=== PATIENT | female | born 1980 | race Caucasian/White ===

== ENCOUNTER 2018-09-05 23:36 | Emergency (ER) | payer OTHER | END 2018-09-06 04:10 | disposition home or self-care (01) | LOC: JER 23:36 | DX: R42 Dizziness and giddiness (principal); R00.2 Palpitations; Z52.4 Kidney donor ==

== ENCOUNTER 2020-02-02 11:34 | Inpatient (IN) | payer OTHER ==
[2020-02-02 13:57] LABS: BASO % 0.4 % (0-2.0); HEMATOCRIT 22.2 % (32.4-45.2); LYMPH % 39.3 % (8-40); MCH 21.9 pg (25.7-33.7); MCHC 31.4 g/dl (32.0-36.0); MEAN CELL VOLUME 69.7 fl (80-96); MEAN PLT VOLUME 8.6 fl (7.5-11.1); MONO % 8.7 % (3.8-10.2); NEUT % 48.6 % (42.8-82.8); PLATELET COUNT 296 K/MM3 (134-434); RBC 3.18 M/mm3 (3.60-5.2); WHITE BLOOD COUNT 6.3 K/mm3 (4.0-10.0)
[2020-02-02 14:07] LABS: CHLORIDE 109 mmol/L (98-107); INR 1.02 (0.83-1.09); PROTHROMBIN TIME (PATIENT) 12.5 SEC (9.7-13.0); SODIUM 139 mmol/L (136-145)
[2020-02-02 14:09] LABS: ALBUMIN 3.8 g/dl (3.4-5.0); ANION GAP 4 MMOL/L (8-16); CALCIUM 8.6 mg/dL (8.5-10.1); CO2 26 mmol/L (21-32); GLUCOSE,RANDOM 89 mg/dL (74-106)
[2020-02-02 14:10] LABS: ACTIVATED PTT 30.1 SECONDS (25.2-36.5)
[2020-02-02 14:13] LABS: CREATININE 0.9 mg/dL (0.55-1.3); SGOT/AST 38 U/L (15-37); SGPT/ALT 49 U/L (13-61)
[2020-02-02 14:14] LABS: BILIRUBIN,TOTAL 0.4 mg/dL (0.2-1)
[2020-02-02 14:15] LABS: ALK PHOS 70 U/L (45-117); TOT PROT 7.4 g/dl (6.4-8.2)
[2020-02-02 14:50] LABS: ANISOCYTOSIS 2+; MACROCYTOSIS 1+; PLATELET ESTIMATE NORMAL
[2020-02-02 17:53] LABS: RETICULOCYTES 2.02 % (0.5-1.5)
[2020-02-02 18:05] LABS: IRON SERUM 20 ug/dL (50-175); TOTAL IRON BINDING CAPACITY 410 ug/dL (250-450)
[2020-02-02 18:21] VITALS: BMI 32.7
[2020-02-03 07:16] VITALS: BP 122/66; PULSE 76; TEMP 98.5
[2020-02-03 08:22] LABS: INR 1.09 (0.83-1.09); PROTHROMBIN TIME (PATIENT) 13.1 SEC (9.7-13.0)
[2020-02-03 08:25] LABS: ACTIVATED PTT 30.5 SECONDS (25.2-36.5)
[2020-02-03 08:29] LABS: BASO % 0.8 % (0-2.0); EOS % 3.2 % (0-4.5); HEMATOCRIT 27.4 % (32.4-45.2); HEMOGLOBIN 8.9 GM/dL (10.7-15.3); LYMPH % 33.3 % (8-40); MCH 23.1 pg (25.7-33.7); MCHC 32.4 g/dl (32.0-36.0); MEAN CELL VOLUME 71.4 fl (80-96); MEAN PLT VOLUME 8.9 fl (7.5-11.1); MONO % 7.2 % (3.8-10.2); NEUT % 55.5 % (42.8-82.8); PLATELET COUNT 289 K/MM3 (134-434); RBC 3.84 M/mm3 (3.60-5.2); WHITE BLOOD COUNT 6.6 K/mm3 (4.0-10.0)
[2020-02-03 08:37] LABS: POTASSIUM 3.8 mmol/L (3.5-5.1)
[2020-02-03 08:42] LABS: CALCIUM 8.2 mg/dL (8.5-10.1); MAGNESIUM 2.1 mg/dL (1.8-2.4)
[2020-02-03 08:43] LABS: ALBUMIN 3.6 g/dl (3.4-5.0); BLOOD UREA NITROGEN 11.9 mg/dL (7-18)
[2020-02-03 08:45] LABS: CREATININE 0.9 mg/dL (0.55-1.3); PHOSPHOROUS 3.1 mg/dL (2.5-4.9)
[2020-02-03 08:47] LABS: BILIRUBIN,TOTAL 1.2 mg/dL (0.2-1); TOT PROT 6.9 g/dl (6.4-8.2)
[2020-02-03] MEDS ORDERED: IRON SUCROSE INJECTION 200 MG in SODIUM CHLORIDE 90 ML IVPB ONE (09:00)
[2020-02-03 09:02] LABS: CHOLESTEROL 171 mg/dL (50-200)
[2020-02-03 09:03] LABS: LDL CHOLESTEROL (ONLY SJRH) 119 mg/dL (5-100); TRIGLYCERIDES 128 mg/dL (0-150)
[2020-02-03 09:05] LABS: HDL CHOLESTEROL 45 mg/dL (40-60)
[2020-02-03] MEDS ORDERED: PT OWN MED DRAWER 7, Y5N ONE (09:58)
== END 2020-02-03 13:43 | disposition home or self-care (01) | DRG 663 ==
LOC: JER 11:34 → JERBED 14:54 → J8W 17:47
PROVIDERS: ATTEND Student in an Organized Health Care Education/Training Program
PROC: 30233N1 Transfusion of Nonautologous Red Blood Cells into Peripheral Vein, Percutaneous Approach (ICD-10-PCS; principal; 2020-02-02)
DX: D50.9 Iron deficiency anemia, unspecified (principal); N92.0 Excessive and frequent menstruation with regular cycle; I10 Essential (primary) hypertension; N93.8 Other specified abnormal uterine and vaginal bleeding; R93.89 Abnormal findings on diagnostic imaging of other specified body structures; E66.9 Obesity, unspecified; Z68.32 Body mass index [BMI] 32.0-32.9, adult
CPT/HCPCS: 36415; 36430; 80053; 80061; 82550; 82728; 83036; 83540; 83550; 83721; 83735; 84100; 84484; 85025; 85045; 85610; 85730; 86850; 86900; 86901; 86922; 93005; 93010; 99285-25; C9803; J1756; P9058; U0003

== ENCOUNTER 2020-10-26 11:06 | Inpatient (IN) | payer OTHER ==
[2020-10-26 13:22] LABS: BASO % 0.4 % (0-2.0); EOS % 2.6 % (0-4.5); HEMATOCRIT 22.5 % (32.4-45.2); HEMOGLOBIN 7.1 GM/dL (10.7-15.3); MCH 20.1 pg (25.7-33.7); MCHC 31.7 g/dl (32.0-36.0); MEAN CELL VOLUME 63.6 fl (80-96); MEAN PLT VOLUME 7.9 fl (7.5-11.1); MONO % 6.8 % (3.8-10.2); NEUT % 44.2 % (42.8-82.8); PLATELET COUNT 295 10^3/uL (134-434); RBC 3.53 M/mm3 (3.60-5.2); RDW 17.6 % (11.6-15.6)
[2020-10-26 13:42] LABS: ALBUMIN 3.8 g/dl (3.4-5.0); BLOOD UREA NITROGEN 14.4 mg/dL (7-18); CALCIUM 8.2 mg/dL (8.5-10.1)
[2020-10-26 13:46] LABS: CREATININE 0.9 mg/dL (0.55-1.3)
[2020-10-26 13:47] LABS: BILIRUBIN,TOTAL 0.7 mg/dL (0.2-1); TOT PROT 7.5 g/dl (6.4-8.2)
[2020-10-26 14:07] LABS: ANISOCYTOSIS 1+; MACROCYTOSIS 0; PLATELET ESTIMATE NORMAL
[2020-10-26 18:09] VITALS: BMI 25.9
[2020-10-26] MEDS ORDERED: amLODIPine BESYLATE 5 MG TABLET (FP) PO SCH (19:00)
[2020-10-26] MEDS ORDERED: LISINOPRIL 10 MG TABLET PO SCH (22:00)
[2020-10-27 03:38] LABS: BASO % 0.3 % (0-2.0); EOS % 2.8 % (0-4.5); HEMATOCRIT 29.3 % (32.4-45.2); HEMOGLOBIN 9.8 GM/dL (10.7-15.3); LYMPH % 44.9 % (8-40); MCH 22.8 pg (25.7-33.7); MCHC 33.5 g/dl (32.0-36.0); MEAN CELL VOLUME 68.1 fl (80-96); MEAN PLT VOLUME 7.3 fl (7.5-11.1); MONO % 7.8 % (3.8-10.2); NEUT % 44.2 % (42.8-82.8); PLATELET COUNT 261 10^3/uL (134-434); RDW 23.4 % (11.6-15.6); WHITE BLOOD COUNT 5.5 K/mm3 (4.0-10.0)
[2020-10-27 04:00] LABS: BLOOD UREA NITROGEN 13.4 mg/dL (7-18); MAGNESIUM 1.8 mg/dL (1.8-2.4)
[2020-10-27 04:05] LABS: CREATININE 0.8 mg/dL (0.55-1.3)
[2020-10-27] MEDS ORDERED: HYDROCHLOROTHIAZIDE 12.5 MG CAPSULE (FP) PO SCH (10:00)
[2020-10-27 15:43] LABS: EPI CELLS 31 /uL (0-25.1); HYALINE CASTS 2 /uL (0-3.1); PH,URINE 6.5 (5.0-8.0); URINE APPEARANCE CLOUDY; URINE BACTERIA 1912 /uL (0-1359); URINE BILIRUBIN NEGATIVE (NEGATIVE); URINE COLOR ORANGE; URINE GLUCOSE (UA) NEGATIVE (NEGATIVE); URINE KETONE NEGATIVE (NEGATIVE); URINE LEUK ESTERASE NEGATIVE (NEGATIVE); URINE NITRITE NEGATIVE (NEGATIVE); URINE PROTEIN 1+ (NEGATIVE); URINE RBC 79 /uL (0-23.9); URINE UROBILINOGEN 0.2 mg/dL (0.2-1.0)
[2020-10-27 19:04] LABS: URINE WBC 119.8 /uL (0-25.8)
[2020-10-28] MEDS ORDERED: IRON SUCROSE INJECTION 200 MG in SODIUM CHLORIDE 90 ML IVPB ONE (04:12)
[2020-10-28 09:40] VITALS: TEMP 98.6
[2020-10-28] MEDS ORDERED: amLODIPine BESYLATE 5 MG TABLET (FP) PO SCH (10:00)
[2020-10-28 10:36] LABS: BASO % 0.4 % (0-2.0); EOS % 2.8 % (0-4.5); HEMATOCRIT 31.9 % (32.4-45.2); HEMOGLOBIN 10.4 GM/dL (10.7-15.3); LYMPH % 33.5 % (8-40); MCH 22.8 pg (25.7-33.7); MCHC 32.7 g/dl (32.0-36.0); MEAN CELL VOLUME 69.7 fl (80-96); MEAN PLT VOLUME 8.2 fl (7.5-11.1); MONO % 5.3 % (3.8-10.2); PLATELET COUNT 295 10^3/uL (134-434); RBC 4.58 M/mm3 (3.60-5.2); WHITE BLOOD COUNT 5.5 K/mm3 (4.0-10.0)
[2020-10-28 14:39] VITALS: BP 124/72; PULSE 62
== END 2020-10-28 18:31 | disposition home or self-care (01) | DRG 663 ==
LOC: JER 11:06 → JERBED 14:22 → J6S 17:19 → OBSVTOIN 21:01
PROVIDERS: ADMIT Internal Medicine; ATTEND Internal Medicine
PROC: 30233N1 Transfusion of Nonautologous Red Blood Cells into Peripheral Vein, Percutaneous Approach (ICD-10-PCS; principal; 2020-10-26)
DX: D62 Acute posthemorrhagic anemia (principal); I10 Essential (primary) hypertension; N92.1 Excessive and frequent menstruation with irregular cycle; Z52.4 Kidney donor; D50.0 Iron deficiency anemia secondary to blood loss (chronic); N83.202 Unspecified ovarian cyst, left side; N83.201 Unspecified ovarian cyst, right side
CPT/HCPCS: 36415; 36430; 36511; 76830-TC; 80048; 80053; 81003; 82728; 83540; 83550; 83735; 85025; 86850; 86900; 86901; 86922; 93005; 93010; 99285-25; C9803; G0378; J1756; P9038; P9058; U0003; U0005

== ENCOUNTER 2022-02-17 11:15 | Emergency (ER) | payer OTHER ==
[2022-02-17 11:57] VITALS: BP 163/76; PULSE 84; RESP 20; TEMP 99.5; BMI 29.2
[2022-02-17] MEDS ORDERED: IBUPROFEN 600 MG TABLET (FP) PO ONE ×2 (12:14→12:33)
[2022-02-17 13:03] LABS: BASO % 0.4 % (0-2.0); EOS % 1.4 % (0-4.5); HEMATOCRIT 29.5 % (32.4-45.2); HEMOGLOBIN 9.5 GM/dL (10.7-15.3); MCH 24.2 pg (25.7-33.7); MCHC 32.3 g/dl (32.0-36.0); MEAN CELL VOLUME 74.9 fl (80-96); MEAN PLT VOLUME 8.1 fl (7.5-11.1); MONO % 4.5 % (3.8-10.2); NEUT % 65.7 % (42.8-82.8); PLATELET COUNT 346 10^3/uL (134-434); RBC 3.94 M/mm3 (3.60-5.2); RDW 19.5 % (11.6-15.6); WHITE BLOOD COUNT 5.9 K/mm3 (4.0-10.0)
[2022-02-17 13:11] LABS: INR 1.03 (0.83-1.09); PROTHROMBIN TIME (PATIENT) 11.8 SEC (9.7-13.0)
[2022-02-17 13:14] LABS: ACTIVATED PTT 31.5 SECONDS (25.2-36.5)
[2022-02-17 13:30] LABS: EPI CELLS 18 /uL (0-25.1); HYALINE CASTS 8 /uL (0-3.1); URINE APPEARANCE TURBID; URINE BILIRUBIN 1+ (NEGATIVE); URINE COLOR RED; URINE GLUCOSE (UA) NEGATIVE (NEGATIVE); URINE KETONE NEGATIVE (NEGATIVE); URINE LEUK ESTERASE 1+ (NEGATIVE); URINE NITRITE POSITIVE (NEGATIVE); URINE PROTEIN 4+ (NEGATIVE); URINE RBC 3454 /uL (0-23.9); URINE UROBILINOGEN 0.2 mg/dL (0.2-1.0); URINE WBC 8 /uL (0-25.8)
[2022-02-17 13:33] LABS: URINE BACTERIA 228 /uL (0-1359)
[2022-02-17 13:43] LABS: ALBUMIN 3.7 g/dl (3.4-5.0)
[2022-02-17 13:44] LABS: BLOOD UREA NITROGEN 11.2 mg/dL (7-18)
[2022-02-17 13:47] LABS: CREATININE 0.9 mg/dL (0.55-1.3)
[2022-02-17 13:48] LABS: BILIRUBIN,TOTAL 0.5 mg/dL (0.2-1); TOT PROT 7.5 g/dl (6.4-8.2)
== END 2022-02-17 14:12 | disposition home or self-care (01) ==
LOC: JER 11:15 → JERFT 11:15
DX: N93.9 Abnormal uterine and vaginal bleeding, unspecified (principal)
CPT/HCPCS: 0241U-QW; 36415; 80053; 81003; 84703; 85025; 85610; 85730; 86850; 86900; 86901; 87086; 99283-25

== ENCOUNTER 2022-06-21 19:27 | Observation (INO) | payer OTHER ==
[2022-06-21 19:41] VITALS: BMI 29.2
[2022-06-21] MEDS ORDERED: METOCLOPRAMIDE HCL INJECTION 10 MG/2 ML VIAL IVPB ONE (20:08)
[2022-06-21] MEDS ORDERED: METOCLOPRAMIDE HCL INJECTION 10 MG/2 ML VIAL ONE (20:11)
[2022-06-21 21:15] LABS: BASO % 0.3 % (0-2.0); HEMATOCRIT 19.9 % (32.4-45.2); LYMPH % 17.8 % (8-40); MCH 21.1 pg (25.7-33.7); MCHC 32.1 g/dl (32.0-36.0); MEAN CELL VOLUME 65.8 fl (80-96); MEAN PLT VOLUME 7.7 fl (7.5-11.1); MONO % 4.3 % (3.8-10.2); NEUT % 76.6 % (42.8-82.8); PLATELET COUNT 272 10^3/uL (134-434); RBC 3.02 M/mm3 (3.60-5.2)
[2022-06-21 21:36] LABS: INR 1.05 (0.83-1.09); PROTHROMBIN TIME (PATIENT) 12.2 SEC (9.7-13.0)
[2022-06-21 21:38] LABS: ACTIVATED PTT 22.2 SECONDS (25.2-36.5)
[2022-06-21 21:45] LABS: HEMOGLOBIN 6.4 GM/dL (10.7-15.3)
[2022-06-21 21:52] LABS: ALBUMIN 3.1 g/dl (3.4-5.0); BLOOD UREA NITROGEN 10.3 mg/dL (7-18); CALCIUM 8.3 mg/dL (8.5-10.1)
[2022-06-21 21:57] LABS: BILIRUBIN,TOTAL 0.3 mg/dL (0.2-1); TOT PROT 6.6 g/dl (6.4-8.2)
[2022-06-21 22:32] LABS: ANISOCYTOSIS 3+; MACROCYTOSIS 0; OVALOCYTE 1+; TARGET CELLS 1+
[2022-06-22] MEDS ORDERED: IRON SUCROSE INJECTION 100 MG in SODIUM CHLORIDE 95 ML IVPB ONE (10:54)
[2022-06-22] MEDS ORDERED: FERROUS SO4 325 MG TABLET (FP) ONE (11:09)
[2022-06-22] MEDS ORDERED: amLODIPine BESYLATE 5 MG TABLET (FP) ONE (11:09)
[2022-06-22] MEDS: amLODIPine BESYLATE 5 MG TABLET (FP) PO SCH (11:28)
[2022-06-22] MEDS: FERROUS SO4 325 MG TABLET (FP) PO SCH (11:28)
[2022-06-22 13:45] LABS: BASO % 0.4 % (0-2.0); EOS % 1.2 % (0-4.5); HEMATOCRIT 27.2 % (32.4-45.2); HEMOGLOBIN 9.1 GM/dL (10.7-15.3); LYMPH % 30.2 % (8-40); MCH 23.3 pg (25.7-33.7); MCHC 33.3 g/dl (32.0-36.0); MEAN CELL VOLUME 69.9 fl (80-96); MEAN PLT VOLUME 7.9 fl (7.5-11.1); MONO % 4.2 % (3.8-10.2); PLATELET COUNT 259 10^3/uL (134-434); RBC 3.89 M/mm3 (3.60-5.2); RDW 21.9 % (11.6-15.6); WHITE BLOOD COUNT 6.7 K/mm3 (4.0-10.0)
[2022-06-23 07:18] LABS: BASO % 0.5 % (0-2.0); EOS % 2.5 % (0-4.5); HEMATOCRIT 25.7 % (32.4-45.2); HEMOGLOBIN 8.8 GM/dL (10.7-15.3); MCHC 34.3 g/dl (32.0-36.0); MEAN PLT VOLUME 8.5 fl (7.5-11.1); MONO % 5.9 % (3.8-10.2); NEUT % 51.1 % (42.8-82.8); PLATELET COUNT 234 10^3/uL (134-434); RBC 3.67 M/mm3 (3.60-5.2); WHITE BLOOD COUNT 6.4 K/mm3 (4.0-10.0)
[2022-06-23 07:49] LABS: CALCIUM 8.1 mg/dL (8.5-10.1)
[2022-06-23 07:50] LABS: ALBUMIN 2.9 g/dl (3.4-5.0); BLOOD UREA NITROGEN 10.1 mg/dL (7-18); MAGNESIUM 1.9 mg/dL (1.8-2.4)
[2022-06-23 07:52] LABS: PHOSPHOROUS 2.8 mg/dL (2.5-4.9)
[2022-06-23 07:53] LABS: CREATININE 0.7 mg/dL (0.55-1.3)
[2022-06-23 07:54] LABS: BILIRUBIN,TOTAL 0.6 mg/dL (0.2-1); TOT PROT 6.1 g/dl (6.4-8.2)
[2022-06-23] MEDS: amLODIPine BESYLATE 5 MG TABLET (FP) PO SCH (10:58)
[2022-06-23] MEDS: FERROUS SO4 325 MG TABLET (FP) PO SCH (10:58)
[2022-06-23] MEDS ORDERED: FERROUS SO4 325 MG TABLET (FP) ONE (10:59)
[2022-06-23] MEDS ORDERED: amLODIPine BESYLATE 5 MG TABLET (FP) ONE (10:59)
[2022-06-23 14:25] VITALS: RESP 16; TEMP 98.6
[2022-06-23 14:33] VITALS: BP 126/71; PULSE 81
== END 2022-06-23 15:23 | disposition home or self-care (01) ==
LOC: JER 19:27 → JERBED 23:19
PROVIDERS: ADMIT Internal Medicine; ATTEND Internal Medicine
PROC: 30233N1 Transfusion of Nonautologous Red Blood Cells into Peripheral Vein, Percutaneous Approach (ICD-10-PCS; principal; 2022-06-21)
PROC: 3E033GC Introduction of Other Therapeutic Substance into Peripheral Vein, Percutaneous Approach (ICD-10-PCS; 2022-06-21)
DX: N92.0 Excessive and frequent menstruation with regular cycle (principal); N93.8 Other specified abnormal uterine and vaginal bleeding; R00.2 Palpitations; D64.89 Other specified anemias; Z90.5 Acquired absence of kidney
CPT/HCPCS: 0241U-QW; 36415; 36430; 80053; 83735; 84100; 84703; 85025; 85610; 85730; 86850; 86900; 86901; 86922; 93005; 93010; 96365; 96375; 99285-25; G0378; J1756; P9058

== ENCOUNTER 2023-03-20 07:16 | Emergency (ER) | payer OTHER ==
[2023-03-20 07:29] VITALS: BP 158/98; PULSE 76; RESP 18; TEMP 98.4; BMI 29.2
[2023-03-20 08:58] LABS: EPI CELLS 32 /uL (0-25.1); HYALINE CASTS 1 /uL (0-3.1); PH,URINE 5.5 (5.0-8.0); URINE APPEARANCE CLEAR; URINE BACTERIA 397 /uL (0-1359); URINE BILIRUBIN NEGATIVE (NEGATIVE); URINE COLOR YELLOW; URINE GLUCOSE (UA) NEGATIVE (NEGATIVE); URINE KETONE NEGATIVE (NEGATIVE); URINE LEUK ESTERASE NEGATIVE (NEGATIVE); URINE NITRITE NEGATIVE (NEGATIVE); URINE PROTEIN NEGATIVE (NEGATIVE); URINE RBC 12 /uL (0-23.9); URINE UROBILINOGEN 0.2 mg/dL (0.2-1.0); URINE WBC 13 /uL (0-25.8)
[2023-03-20 09:16] LABS: HCG,QUALITATIVE URINE Negative
== END 2023-03-20 10:25 | disposition home or self-care (01) ==
LOC: JER 07:16 → JERFT 07:16
DX: R30.9 Painful micturition, unspecified (principal); R35.0 Frequency of micturition; N30.01 Acute cystitis with hematuria
CPT/HCPCS: 81003; 84703; 87086; 99283-25